=== PATIENT | male | born 1975 | race African-American/Black ===

== ENCOUNTER 2021-02-06 12:45 | Inpatient (IN) | payer BC ==
[~2021-02-06] VITALS: Ht 175.3 cm; Wt 109.1 kg
[2021-02-06] MEDS ORDERED: LISINOPRIL10 MG PO (13:08)
[2021-02-06 14:20] LABS: HEMATOCRIT 43.3 % (42.0-54.0); HEMOGLOBIN 14.8 g/dL (13.5-17.5); MCH 31.5 pg (26.0-34.0); MCHC 34.1 g/dL (31.0-37.0); MCV 92.2 fL (80.0-100.0); MEAN PLATELET VOLUME 9.5 fL (7.4-10.4); PLATELET COUNT 235 10x3/uL (130-400); RBC 4.69 10x6/uL (4.20-6.10); RDW 13.3 % (11.5-14.5); WBC 7.2 10x3/uL (4.8-10.8)
[2021-02-06 14:32] LABS: ANION GAP 12.8 mmol/L (8-16); CALCIUM 8.7 mg/dL (8.5-10.1); CARBON DIOXIDE 25.7 mmol/L (21.0-32.0); CREATININE - SERUM 1.4 mg/dL (0.6-1.3); POTASSIUM - SERUM 3.5 mmol/L (3.5-5.1)
--- NOTE | 2021-02-06 14:38 | NUR ---
RIGHT ANKLE/HEEL WITH FRACTURE AND OPEN WOUND. PER ORDERS PLACE WET TO DRY DRESSING AND WRAPPED WELL. ICE PACKS PLACED. PATIENT WITH NO COMPLAINTS AT THIS TIME. CALL LIGHT IN REACH AND FAMILY AT THE BEDSIDE.
[2021-02-06 15:09] LABS: EOSINOPHILS 1 % (0-7); LYMPHOCYTES 60 % (15-50); MONOCYTES 7 % (2-11); NEUTROPHILS 32 % (40-80); PLATELET ESTIMATE NORMAL
--- NOTE | 2021-02-06 16:43 | NUR ---
PT REPORT GIVEN TO JHONATAN GARCIA IN OUTPATIENT SURGERY AT THIS TIME
--- NOTE | 2021-02-06 16:48 | NUR ---
[facility] CALLED AT THIS TIME. AWAITING TRANSFER TO FLOOR
[2021-02-06 17:51] VITALS: BP 128/66; BMI 35.5
[2021-02-06 19:56] VITALS: BP 145/87
[2021-02-06 20:26] VITALS: Ht 175.3 cm; Wt 109.1 kg
[2021-02-07 04:58] VITALS: BP 128/68
--- NOTE | 2021-02-07 08:13 | OP ---
PATIENT NAME: CINDY EDDY MEDICAL RECORD: [id number] :77 LOCATION:[id number] ADMISSION DATE:02/06/21 SURGEON: GREGOR BELLE DO DATE OF OPERATION: 02/06/2021 PROCEDURE PERFORMED: Right calcaneus irrigation and debridement of the right lower extremity. PREOPERATIVE DIAGNOSIS: Type 2 open fracture of the right calcaneus. POSTOPERATIVE DIAGNOSIS: Type 2 open fracture of the right calcaneus. INDICATIONS: Mr. Eddy is a 45-year-old male who was up on a ladder cutting tree limbs down in flip flops slipped and fell off cutting his medial side of his calcaneus and landing on his heel. He came to the ER and saw that he had very comminuted right calcaneus fracture with a 5 cm laceration obliquely over the medial side of the calcaneus. There were no bone fragments in the wound; however, due to the proximity to the fracture, he was given Ancef and tetanus in the ER and set up for immediate surgery. I told him might be a chance we could fix it, but due to the location of the fracture and the use of a very high likelihood of infection that we get the wound to heal first and then go back and do open reduction internal fixation. He was okay with that. He was consented for open reduction internal fixation, irrigation and debridement. He is aware of the risks including infection, bleeding, damage to nerve or vessels, need for further surgery, continued pain, failure of any fixation, nonweightbearing restrictions, and blood clots and even and he signed the consent. SURGEON: Gregor Belle DO DESCRIPTION OF PROCEDURE: The patient was taken to the operative suite, laid in supine position, given a block and TIVA by anesthesia, given 2 grams Ancef preoperatively. The left lower extremity was then prepped and draped in sterile fashion. A time-out was performed. Everyone was in agreeance with correct, side, site, the patient, and procedure. I then irrigated the 5-cm laceration with 6 liters of normal saline and debrided down to the level of the dermis and fascia, debriding any tissue with the power carbon capture power plant operator. Once it was clean and there was no debris seen in the wound, I then closed it with a 2-0 nylon in a horizontal mattress fashion and 3-0 nylon also with some simple sutures also. He was then dressed with Adaptic, 4 x 4s, ABD on the heel and over the foot and then put a 2 x 2 using Kerlix, cast padding dressing and put a 4 x 30 splint posteriorly and 6-inch Obed wrap holding in place. Once that was placed and firm, he was then moved over to the bed and taken back to his room in stable condition. BLOOD LOSS: Minimal. COMPLICATIONS: None. TRANSINT:[id number] Voice Confirmation ID: [id number] DOCUMENT ID: [id number] OPERATIVE REPORT [id number] CINDY EDDY,GREGOR Rogers DO at 0813 CC: [id number] DICTATION DATE: 02/06/212004 VICE PRESIDENT PAYMENT: 02/07/[address] [facility] [address] [place] [address]
[2021-02-07 08:26] VITALS: BP 100/62
--- NOTE | 2021-02-07 09:00 | NUR ---
ALERT AND ORIENTED X4. SPLINT INTACT TO RLE WITH ICE PACK APPLIED FOR EDEMA AND ELEVATED FOR COMFORT. DENIES ANY PAIN OR DISCOMFORT AT THIS TIME. IV TO RIGHT F/A WITH IVF INFUSING AT PRESCRIBED RATE. ENCOURAGED TO USE CALL LIGHT FOR ASSSIT.
[2021-02-07 11:34] VITALS: BP 112/59
[2021-02-07 17:26] VITALS: BP 123/75
[2021-02-07 20:00] VITALS: BP 102/44
--- NOTE | 2021-02-08 02:29 | NUR ---
I have reviewed this patient and I concur with the Shift Assessment completed by the Licensed Practical Nurse today this shift.
[2021-02-08 04:00] VITALS: BP 115/50
[2021-02-08 09:00] VITALS: BP 99/61
[2021-02-08 16:51] VITALS: BP 128/54
[2021-02-08 20:00] VITALS: BP 111/72
--- NOTE | 2021-02-08 23:36 | NUR ---
I have reviewed this patient and I concur with the Shift Assessment completed by the Licensed Practical Nurse today this shift.
[2021-02-09] MEDS ORDERED: PERCOCET 10-321 EAC1 PO (06:58)
[2021-02-09] MEDS ORDERED: VISTARIL50 MG PO (06:58)
[2021-02-09] MEDS ORDERED: ASPIRIN81 MG PO (06:58)
[2021-02-09] MEDS ORDERED: CEPHALEXIN500 M1 PO (07:03)
[2021-02-09 09:22] VITALS: BP 124/62
--- NOTE | 2021-02-09 10:40 | NUR ---
WENT OVER DC PAPERWORK WITH PATIENT AND FOLLOW UP APPOINTMENTS, ALL QUESTIONS ANSWERED, IV DC WITH CATHETER INTACT. PATIENT TAKEN TO VEHICLE VIA WC BY BROADCAST SUPERVISOR.
--- NOTE | 2021-02-09 10:42 | NUR ---
I have reviewed this patient and I concur with the Shift Assessment completed by the Licensed Practical Nurse today this shift.
--- NOTE | 2021-02-09 11:48 | MORECARE ---
CASE MANAGEMENT DISCHARGE SUMMARY PATIENT: CINDY COLIN UNIT: [id number] ADM DATE: 02/06/21 AGE: 45 : 77 SEX: M ROOM/BED: D.2211 AUTHOR: KRISHNA,DOC PHYSICIAN: REFERRING PHYSICIAN: JULIO BELLE DO DATE OF SERVICE: 02/09/21 Case Management Discharge Planning Summary COMMENTS ENTERED DATE: 02/09/21 11:39 CT COMMENT TYPE: Discharge Planning REVIEWER: Rosa Calabrese late entry- 02/09/21 at 0945 CM met with patient to complete initial dc planning assessment. CM educated patient on the CM role and verbal consent given by patient to complete assessment. Patient lives at home with his where he was independent at home. At discharge patient plans to return home and feels this is a safe discharge. CM discussed availability of home health, rehab services, and medical equipment. He has crutches in the care. His is in the room with him and will be his delivery driver home. Patient denied known discharge needs at this time. CM will continue to follow and will assist as needed with dc plans/needs. DCP REVIEW SUMMARY ANTICIPATED D/C DATE: EXPECTED LOS : CASE STATUS: DCP Initiated INITIAL REVIEW: 02/06/2021 INITIAL REVIEWER: Rosa Calabrese FINAL DISCHARGE DISPOSITION: 01 : Home or Self Care (Routine Discharge) FINAL REVIEWER: FINAL REVIEW DATE: DCP Focus Questions & Answers QUESTION: ANSWER : PATIENT: CINDY COLIN ENCOUNTER: [id number] MEDICAL RECORD#: [id number] ADMISSION DATE: 02/06/2021 DISCHARGE DATE: 02/09/2021 ATTENDING MD: JULIO WEBER : AGE: 45 MARITAL STATUS: M DC PLAN ID: [id number] FACILITY: [facility] PRINTED ON: 02/09/21 11:48 CT All edits/amendments must be made on the electronic document DICTATION DATE: 02/09/21 1148 RUG SETTER AXMINSTER: JORDEN 02/09/21 1148 RPT#: [id number] DC DATE:02/09/21 STATUS: DIS IN [facility] [address] [place] [address] END OF REPORT
--- NOTE | 2021-02-10 10:33 | MORECARE ---
CASE MANAGEMENT DISCHARGE SUMMARY PATIENT: CINDY COLIN UNIT: [id number] ADM DATE: 02/06/21 AGE: 45 : 76 SEX: M ROOM/BED: D.2211 AUTHOR: KRISHNA,DOC PHYSICIAN: REFERRING PHYSICIAN: JULIO BELLE DO DATE OF SERVICE: 02/10/21 Case Management Discharge Planning Summary COMMENTS ENTERED DATE: 02/09/21 11:39 CT COMMENT TYPE: Discharge Planning REVIEWER: Rosa Calabrese late entry- 02/09/21 at 0945 CM met with patient to complete initial dc planning assessment. CM educated patient on the CM role and verbal consent given by patient to complete assessment. Patient lives at home with his where he was independent at home. At discharge patient plans to return home and feels this is a safe discharge. CM discussed availability of home health, rehab services, and medical equipment. He has crutches in the care. His is in the room with him and will be his courtesy van driver home. Patient denied known discharge needs at this time. CM will continue to follow and will assist as needed with dc plans/needs. DCP REVIEW SUMMARY ANTICIPATED D/C DATE: EXPECTED LOS : 0 CASE STATUS: DCP Complete INITIAL REVIEW: 02/06/2021 INITIAL REVIEWER: Rosa Calabrese FINAL DISCHARGE DISPOSITION: 01 : Home or Self Care (Routine Discharge) FINAL REVIEWER: Rosa Calabrese FINAL REVIEW DATE: 02/10/2021 DCP Focus Questions & Answers QUESTION: ANSWER : PATIENT: CINDY COLIN ENCOUNTER: [id number] MEDICAL RECORD#: [id number] ADMISSION DATE: 02/06/2021 DISCHARGE DATE: 02/09/2021 ATTENDING MD: JULIO WEBER : AGE: 45 MARITAL STATUS: M DC PLAN ID: [id number] FACILITY: [facility] PRINTED ON: 02/10/21 10:33 CT All edits/amendments must be made on the electronic document DICTATION DATE: 02/10/211032 GOLF COURSE ARCHITECT: JORDEN 02/10/21 1033 RPT#: [id number] DC DATE:02/09/21 STATUS: DIS IN [facility] [address] [place] [address] END OF REPORT
== END 2021-02-09 10:43 | disposition home or self-care (01) | DRG 502 ==
LOC: D.ER 12:45 → D.OPS 18:21 → D.SDCHOLD 18:24 → D.MS 19:33
PROVIDERS: Emergency Medicine; ADMIT Orthopaedic Surgery; ATTEND Orthopaedic Surgery
PROC: 0JDQ0ZZ Extraction of Right Foot Subcutaneous Tissue and Fascia, Open Approach (ICD-10-PCS; principal; 2021-02-06 15:30)
DX: S92.001B Unspecified fracture of right calcaneus, initial encounter for open fracture (principal); W11.XXXA Fall on and from ladder, initial encounter; I10 Essential (primary) hypertension; Z72.0 Tobacco use